=== PATIENT | female | born 1995 | race Caucasian/White ===

== ENCOUNTER 2020-11-05 19:12 | Emergency (ER) | payer OTHER ==
[~2020-11-05] VITALS: Ht 170.2 cm; Wt 120.2 kg
[~2020-11-05 19:12] MED LIST: Cyclobenzaprine5 MG PO; KETO10 PO
== END 2020-11-06 01:15 | disposition home or self-care (01) ==
LOC: ER 19:12
DX: M79.89 Other specified soft tissue disorders (principal); R20.0 Anesthesia of skin; R20.2 Paresthesia of skin; Z88.5 Allergy status to narcotic agent; Z88.0 Allergy status to penicillin
CPT/HCPCS: 29125; 73120; 99283-25

== ENCOUNTER 2021-04-19 02:23 | Emergency (ER) | payer BC ==
[~2021-04-19] VITALS: Ht 167.6 cm; Wt 124.7 kg
[2021-04-19] MEDS ORDERED: ESCI10 PO (03:57)
[2021-04-19] MEDS ORDERED: METF500 PO (03:57)
== END 2021-04-19 06:01 | disposition home or self-care (01) ==
LOC: ER 02:23
DX: N83.202 Unspecified ovarian cyst, left side (principal); N93.8 Other specified abnormal uterine and vaginal bleeding; E11.9 Type 2 diabetes mellitus without complications; Z88.5 Allergy status to narcotic agent; Z88.0 Allergy status to penicillin; Z79.84 Long term (current) use of oral hypoglycemic drugs; Z79.899 Other long term (current) drug therapy
CPT/HCPCS: 76830; 76856; 96374; 96375; 99284-25; J2405; J3010

== ENCOUNTER 2021-08-06 06:24 | Emergency (ER) | payer OTHER, BC ==
[~2021-08-06] VITALS: Ht 170.2 cm; Wt 127.0 kg
[~2021-08-06 06:24] MED LIST changes: +ESCI10 PO; +METF500 PO
[2021-08-06] MEDS ORDERED: BUPR75 PO (07:04)
[2021-08-06 07:14] LABS: Source, Urine Clean Catch
[2021-08-06 07:17] LABS: Bilirubin, Urine Neg (Neg); Blood, Urine Neg (Neg); Glucose Qualitative, Urine Neg (Neg); Ketones, Urine 1+ (Neg); Leukocyte Esterase, Urine Neg (Neg); Nitrite, Urine Neg (Neg); Protein, Urine 1+ (Neg); Specific Gravity, Urine 1.025 (1.003-1.022); Urobilinogen, Urine 2+ (Normal)
[2021-08-06 07:30] LABS: Appearance, Urine Hazy (Clear); Color, Urine Yellow (P-Yellow)
[2021-08-06 07:31] LABS: Bacteria Rare /hpf; Red Blood Cells, Urine Not Seen /hpf (0-2); Squamous Epithelial Cells Mod /hpf (Few); White Blood Cells, Urine Not Seen /hpf (0-5)
== END 2021-08-06 08:13 | disposition home or self-care (01) ==
LOC: ER 06:24
PROVIDERS: Emergency Medicine
DX: S39.91XA Unspecified injury of abdomen, initial encounter (principal); E11.9 Type 2 diabetes mellitus without complications; Z88.0 Allergy status to penicillin; Z88.5 Allergy status to narcotic agent; Z79.899 Other long term (current) drug therapy; Z79.84 Long term (current) use of oral hypoglycemic drugs; X58.XXXA Exposure to other specified factors, initial encounter
CPT/HCPCS: 76700; 81001; 99284-25

== ENCOUNTER 2021-08-09 19:22 | Emergency (ER) | payer BC ==
[~2021-08-09] VITALS: Ht 167.6 cm; Wt 130.0 kg
[~2021-08-09 19:22] MED LIST changes: +BUPR75 PO
== END 2021-08-10 01:07 | disposition home or self-care (01) ==
LOC: ER 19:22
DX: R07.89 Other chest pain (principal); K80.20 Calculus of gallbladder without cholecystitis without obstruction; R50.9 Fever, unspecified; Z88.5 Allergy status to narcotic agent; Z88.0 Allergy status to penicillin; E11.9 Type 2 diabetes mellitus without complications
CPT/HCPCS: 74177; 76705; 83690; A9270; J1885; J2405; J3010; J7030; Q9967

== ENCOUNTER → 2021-11-19 | Outpatient (CLI) | payer BC | END | disposition home or self-care (01) | LOC: LAB SHORT 17:08 → LAB 17:08 | DX: N91.2 Amenorrhea, unspecified (principal) | CPT/HCPCS: 84702 ==

== ENCOUNTER 2021-11-30 03:02 | Observation (INO) | payer BC ==
[~2021-11-30] VITALS: Ht 170.2 cm; Wt 124.7 kg
[2021-11-30 03:38] LABS: BASOPHILS ABSOLUTE AUTO 0.04 K/mm3 (0.00-0.23); BASOPHILS PERCENT AUTO 0 % (0-2); EOSINOPHILS ABSOLUTE AUTO 0.11 K/mm3 (0.00-0.68); EOSINOPHILS PERCENT AUTO 1 % (0-6); Hemoglobin 11.9 g/dL (11.5-16.0); IMMATURE GRAN ABSOLUTE AUTO 0.05 K/mm3 (0.00-0.10); IMMATURE GRAN PERCENT AUTO 1 % (0-1); LYMPHOCYTES ABSOLUTE AUTO 3.18 K/mm3 (0.84-5.20); LYMPHOCYTES PERCENT AUTO 31 % (21-46); MONOCYTES ABSOLUTE AUTO 0.74 K/mm3 (0.16-1.47); MONOCYTES PERCENT AUTO 7 % (4-13); Mean Corpuscular HGB 26.5 pg (26.0-34.0); Mean Corpuscular HGB Conc 32.2 g/dL (31.5-36.5); Mean Corpuscular Volume 82 fL (80-100); NEUTROPHILS ABSOLUTE AUTO 6.26 K/mm3 (1.96-9.15); NEUTROPHILS PERCENT AUTO 60 % (41-73); Platelet Count 376 K/mm3 (150-400); RDW Coefficient Variation 15.1 % (11.7-14.2); RDW Standard Deviation 45.4 fL (35.1-46.3); Red Blood Cell Count 4.49 M/mm3 (3.80-5.20); White Blood Cell Count 10.38 K/mm3 (4.00-11.30)
[2021-11-30 03:58] LABS: Alanine Aminotransfer (ALT/SGP 55 U/L (12-78); Albumin, Blood 3.5 g/dL (3.4-5.0); Albumin/Globulin Ratio 0.9 (0.8-1.8); Alk Phos 84 U/L (50-136); Anion Gap 6 mmol/L (6-16); Aspartate Aminotrans (AST/SGOT 27 U/L (12-37); Beta HCG, Quantitative, Serum <1 mIU/mL (0-3); Bilirubin, Direct 0.1 mg/dL (0.0-0.3); Bilirubin, Indirect 0.2 mg/dL (0.1-0.7); Bilirubin, Total 0.3 mg/dL (0.1-1.0); Blood Urea Nitrogen 14 mg/dL (8-24); CO2, Blood 26 mmol/L (21-32); Calcium, Blood 8.6 mg/dL (8.5-10.1); Chloride, Blood 106 mmol/L (98-108); Globulin, Blood 3.7 g/dL (2.2-4.0); Glomerular Filtration Rate 123 (60-); Glucose, Blood 111 mg/dL (70-99); Potassium, Blood 4.1 mmol/L (3.5-5.5); Sodium, Blood 138 mmol/L (136-145); Total Protein, Blood 7.2 g/dL (6.4-8.2)
[2021-11-30 04:24] LABS: Influenza A, PCR NEGATIVE (NEGATIVE); Influenza B, PCR NEGATIVE (NEGATIVE); Resp Syncytial Virus, PCR NEGATIVE (NEGATIVE); SARS-Cov-2 (COVID-19) PCR, MMC NEGATIVE (NEGATIVE)
[2021-11-30 06:25] LABS: Source, Urine Clean Catch
[2021-11-30 06:36] LABS: Appearance, Urine Clear (Clear); Bilirubin, Urine Neg (Neg); Blood, Urine 4+ (Neg); Color, Urine Yellow (P-Yellow); Glucose Qualitative, Urine Neg (Neg); Ketones, Urine Neg (Neg); Leukocyte Esterase, Urine Neg (Neg); Nitrite, Urine Neg (Neg); Protein, Urine 1+ (Neg); Specific Gravity, Urine 1.025 (1.003-1.022); Urobilinogen, Urine NORM (Normal)
[2021-11-30 06:56] LABS: Bacteria Few /hpf; Squamous Epithelial Cells Few /hpf (Few); White Blood Cells, Urine 0-2 /hpf (0-5)
--- NOTE | 2021-12-01 04:39 | NUR ---
SHIFT SUMMARY PT A&OX4, PLEASANT AND COOPERATIVE. TOLERATING SMALL AMOUNTS OF PO INTAKE, MEDICATED FOR NAUSEA ONCE. INDEPENDENT IN ROOM. REINFORCED UMBLICAL DRESSING STERI STRIPS WERE SATURATED, UPPER MOST LAP SITE HAD SOME DRIED BLOOD ON STERI STRIP, OTHER SITES WERE C/D/I. CALL LIGHT WITHIN REACH.
[2021-12-01] MEDS ORDERED: Percocet 10-321 EACH PO (10:35)
--- NOTE | 2021-12-01 10:49 | NUR ---
1047 DISCHARGED TO HOME. PT REPPORTS PAIN IS ADEQUATELY CONTROLLED WITH PO MEDS, SELF AMBULATING, ELADIA REGULAR DIET. VOIDING CLEAR YELLOW URINE
== END 2021-12-01 10:47 | disposition home or self-care (01) ==
LOC: ER 03:02 → SURS 03:03 → ER 09:43 → SURS 09:43 → ER 09:43 → SURS 09:43
PROVIDERS: Student in an Organized Health Care Education/Training Program; ADMIT Surgery
PROC: 0FT44ZZ Resection of Gallbladder, Percutaneous Endoscopic Approach (ICD-10-PCS; principal; 2021-11-30 14:30)
DX: K80.10 Calculus of gallbladder with chronic cholecystitis without obstruction (principal); D36.0 Benign neoplasm of lymph nodes; Z88.5 Allergy status to narcotic agent; Z88.0 Allergy status to penicillin; E11.9 Type 2 diabetes mellitus without complications; Z79.899 Other long term (current) drug therapy; Z20.822 Contact with and (suspected) exposure to COVID-19
CPT/HCPCS: 0241U; 74177; 76830; 76856; 80048; 80076; 81001; 83690; 84702; 85025; 94760; 96365-59; 96375; 96376; 99285-25; A9270; J0690; J0696; J1100; J1885; J2250; J2405; J2704; J2710; J2795; J3010; J7030; J7120; Q9967

== ENCOUNTER 2022-07-19 17:40 | Emergency (ER) | payer BC ==
[~2022-07-19] VITALS: Ht 165.1 cm; Wt 133.4 kg
[~2022-07-19 17:40] MED LIST changes: +Percocet 10-321 EACH PO
== END 2022-07-19 22:25 | disposition home or self-care (01) ==
LOC: ER 17:40
DX: N93.9 Abnormal uterine and vaginal bleeding, unspecified (principal); R10.2 Pelvic and perineal pain; E28.2 Polycystic ovarian syndrome; E11.9 Type 2 diabetes mellitus without complications; Z88.5 Allergy status to narcotic agent; Z88.0 Allergy status to penicillin; Z79.899 Other long term (current) drug therapy
CPT/HCPCS: 36415; 76830; 76856; 81025

== ENCOUNTER 2023-01-12 01:40 | Emergency (ER) | payer BC ==
[~2023-01-12] VITALS: Ht 167.6 cm; Wt 132.4 kg
[2023-01-12] MEDS ORDERED: ADDERALL 10 MG10 MG PO (02:37)
[2023-01-12 03:47] VITALS: BP 137/82
== END 2023-01-12 03:48 | disposition home or self-care (01) ==
LOC: ER 01:40
DX: R04.0 Epistaxis (principal); Z88.0 Allergy status to penicillin; Z88.5 Allergy status to narcotic agent
CPT/HCPCS: 99283; A9270

== ENCOUNTER 2023-04-03 17:07 | Emergency (ER) | payer BC ==
[~2023-04-03] VITALS: Ht 165.1 cm; Wt 120.2 kg
[~2023-04-03 17:07] MED LIST changes: +ADDERALL 10 MG10 MG PO
[2023-04-03 18:15] LABS: BASOPHILS ABSOLUTE AUTO 0.04 K/mm3 (0.00-0.23); BASOPHILS PERCENT AUTO 1 % (0-2); EOSINOPHILS ABSOLUTE AUTO 0.18 K/mm3 (0.00-0.68); EOSINOPHILS PERCENT AUTO 2 % (0-6); Hematocrit 39.6 % (33.0-51.0); Hemoglobin 12.9 g/dL (11.5-16.0); IMMATURE GRAN ABSOLUTE AUTO 0.02 K/mm3 (0.00-0.10); IMMATURE GRAN PERCENT AUTO 0 % (0-1); LYMPHOCYTES ABSOLUTE AUTO 1.46 K/mm3 (0.84-5.20); LYMPHOCYTES PERCENT AUTO 18 % (21-46); MONOCYTES ABSOLUTE AUTO 0.68 K/mm3 (0.16-1.47); MONOCYTES PERCENT AUTO 9 % (4-13); Mean Corpuscular HGB 26.5 pg (26.0-34.0); Mean Corpuscular HGB Conc 32.6 g/dL (31.5-36.5); Mean Corpuscular Volume 82 fL (80-100); Mean Platelet Volume 11.9 fL (9.1-12.4); NEUTROPHILS ABSOLUTE AUTO 5.55 K/mm3 (1.96-9.15); NEUTROPHILS PERCENT AUTO 70 % (41-73); Platelet Count 359 K/mm3 (150-400); RDW Coefficient Variation 14.8 % (11.7-14.2); RDW Standard Deviation 43.1 fL (35.1-46.3); Red Blood Cell Count 4.86 M/mm3 (3.80-5.20); White Blood Cell Count 7.93 K/mm3 (4.00-11.30)
[2023-04-03 18:31] LABS: Albumin, Blood 3.9 g/dL (3.4-5.0); Albumin/Globulin Ratio 1.1 (0.8-1.8); Bilirubin, Total 0.7 mg/dL (0.1-1.0); Bun/Creatinine Ratio 6.5 (12.0-20.0); Calcium, Blood 9.2 mg/dL (8.5-10.1); Creatinine, Blood 0.77 mg/dL (0.40-1.00); Globulin, Blood 3.7 g/dL (2.2-4.0); Potassium, Blood 3.6 mmol/L (3.5-5.5); Total Protein, Blood 7.6 g/dL (6.4-8.2)
[2023-04-03 18:38] LABS: Source, Urine Clean Catch
[2023-04-03 18:41] LABS: Blood, Urine 4+ (Neg); Glucose Qualitative, Urine Neg (Neg); Ketones, Urine 4+ (Neg); Leukocyte Esterase, Urine 1+ (Neg); Nitrite, Urine Neg (Neg); Protein, Urine 3+ (Neg); Urobilinogen, Urine 2+ (Normal)
[2023-04-03 18:43] LABS: Appearance, Urine Cloudy (Clear); Bilirubin, Urine 2+ (Neg); Color, Urine Yellow (P-Yellow)
[2023-04-03 18:45] LABS: Amorphous Mod (0-Heavy); Bacteria Few /hpf; Red Blood Cells, Urine 25-50 /hpf (0-2); Squamous Epithelial Cells Rare /hpf (Few); White Blood Cells, Urine 0-2 /hpf (0-5)
[2023-04-03 18:49] LABS: Other Crystals Few /hpf
[2023-04-03] MEDS ORDERED: CELEBREX200 MG PO (19:42)
[2023-04-03] MEDS ORDERED: PRILOSEC OTC20 MG PO (19:42)
[2023-04-03 20:15] VITALS: BP 167/103
[2023-04-03] MEDS ORDERED: Norco 5-325 Ta1 EACH PO (20:18)
== END 2023-04-03 20:30 | disposition home or self-care (01) ==
LOC: ER 17:07
PROVIDERS: Physician Assistant
DX: N20.0 Calculus of kidney (principal); E11.9 Type 2 diabetes mellitus without complications; Z98.84 Bariatric surgery status; Z88.5 Allergy status to narcotic agent; Z88.0 Allergy status to penicillin; Z79.899 Other long term (current) drug therapy
CPT/HCPCS: 74177; 80053; 81001; 84703; 85025; 87077; 87086; 87186; 96374; 96375; 99284-25; J1885; J2405; J3010; Q9967

== ENCOUNTER 2023-04-06 06:20 | Emergency (ER) | payer BC ==
[~2023-04-06] VITALS: Ht 167.6 cm; Wt 117.9 kg
[~2023-04-06 06:20] MED LIST changes: +CELEBREX200 MG PO; +Norco 5-325 Ta1 EACH PO; +PRILOSEC OTC20 MG PO
[2023-04-06 07:00] VITALS: BP 123/81
[2023-04-06 08:39] LABS: BASOPHILS ABSOLUTE AUTO 0.04 K/mm3 (0.00-0.23); BASOPHILS PERCENT AUTO 1 % (0-2); EOSINOPHILS ABSOLUTE AUTO 0.17 K/mm3 (0.00-0.68); EOSINOPHILS PERCENT AUTO 3 % (0-6); Hematocrit 38.5 % (33.0-51.0); Hemoglobin 12.3 g/dL (11.5-16.0); IMMATURE GRAN ABSOLUTE AUTO 0.02 K/mm3 (0.00-0.10); IMMATURE GRAN PERCENT AUTO 0 % (0-1); LYMPHOCYTES ABSOLUTE AUTO 1.63 K/mm3 (0.84-5.20); LYMPHOCYTES PERCENT AUTO 26 % (21-46); MONOCYTES ABSOLUTE AUTO 0.61 K/mm3 (0.16-1.47); MONOCYTES PERCENT AUTO 10 % (4-13); Mean Corpuscular HGB 26.3 pg (26.0-34.0); Mean Corpuscular HGB Conc 31.9 g/dL (31.5-36.5); Mean Corpuscular Volume 82 fL (80-100); Mean Platelet Volume 11.6 fL (9.1-12.4); NEUTROPHILS ABSOLUTE AUTO 3.78 K/mm3 (1.96-9.15); NEUTROPHILS PERCENT AUTO 61 % (41-73); Platelet Count 302 K/mm3 (150-400); RDW Standard Deviation 44.5 fL (35.1-46.3); Red Blood Cell Count 4.68 M/mm3 (3.80-5.20); White Blood Cell Count 6.25 K/mm3 (4.00-11.30)
[2023-04-06 08:58] LABS: Albumin, Blood 3.6 g/dL (3.4-5.0); Albumin/Globulin Ratio 0.9 (0.8-1.8); Bilirubin, Direct 0.2 mg/dL (0.0-0.3); Bilirubin, Indirect 0.5 mg/dL (0.1-0.7); Bilirubin, Total 0.7 mg/dL (0.1-1.0); Calcium, Blood 8.7 mg/dL (8.5-10.1); Creatinine, Blood 0.75 mg/dL (0.40-1.00); Globulin, Blood 3.9 g/dL (2.2-4.0); Magnesium, Blood 2.4 mg/dL (1.6-2.4); Potassium, Blood 3.4 mmol/L (3.5-5.5); Total Protein, Blood 7.5 g/dL (6.4-8.2)
[2023-04-06 10:54] LABS: Source, Urine Clean Catch
[2023-04-06 11:05] LABS: Appearance, Urine Hazy (Clear); Bilirubin, Urine Neg (Neg); Blood, Urine 3+ (Neg); Color, Urine Yellow (P-Yellow); Glucose Qualitative, Urine Neg (Neg); Ketones, Urine 4+ (Neg); Leukocyte Esterase, Urine 1+ (Neg); Nitrite, Urine Neg (Neg); Protein, Urine 2+ (Neg); Urobilinogen, Urine NORM (Normal); pH, Urine 6.5 (5.0-8.0)
[2023-04-06 11:40] LABS: Bacteria Rare /hpf; Calcium Oxalate Crystals Few /hpf; Squamous Epithelial Cells Few /hpf (Few); White Blood Cells, Urine 0-2 /hpf (0-5)
[2023-04-06] MEDS ORDERED: PROM12.5S PR (11:52)
[2023-04-06] MEDS ORDERED: METO10 PO (11:52)
[2023-04-06] MEDS ORDERED: ONDA4ODT MM (11:52)
== END 2023-04-06 12:00 | disposition home or self-care (01) ==
LOC: ER 06:20
PROVIDERS: Student in an Organized Health Care Education/Training Program
DX: R11.2 Nausea with vomiting, unspecified (principal); E86.0 Dehydration; E87.6 Hypokalemia; Z88.5 Allergy status to narcotic agent; Z88.0 Allergy status to penicillin; Z79.899 Other long term (current) drug therapy; E11.9 Type 2 diabetes mellitus without complications
CPT/HCPCS: 74177; 80048; 80076; 81001; 83690; 83735; 84703; 85025; 87086; 96361; 96374-59; 96375; 99284-25; A9270; J0780; J1790; J2765; J7030; Q9967

== ENCOUNTER 2023-04-12 10:21 | Inpatient (IN) | payer BC ==
[~2023-04-12] VITALS: Ht 165.1 cm; Wt 123.5 kg
[~2023-04-12 10:21] MED LIST changes: +METO10 PO; +ONDA4ODT MM; +PROM12.5S PR
[2023-04-12 11:45] LABS: BASOPHILS ABSOLUTE AUTO 0.03 K/mm3 (0.00-0.23); BASOPHILS PERCENT AUTO 0 % (0-2); EOSINOPHILS ABSOLUTE AUTO 0.03 K/mm3 (0.00-0.68); EOSINOPHILS PERCENT AUTO 0 % (0-6); Hematocrit 39.2 % (33.0-51.0); Hemoglobin 12.4 g/dL (11.5-16.0); IMMATURE GRAN ABSOLUTE AUTO 0.03 K/mm3 (0.00-0.10); IMMATURE GRAN PERCENT AUTO 0 % (0-1); LYMPHOCYTES ABSOLUTE AUTO 0.98 K/mm3 (0.84-5.20); LYMPHOCYTES PERCENT AUTO 9 % (21-46); MONOCYTES PERCENT AUTO 8 % (4-13); Mean Corpuscular HGB 26.4 pg (26.0-34.0); Mean Corpuscular HGB Conc 31.6 g/dL (31.5-36.5); Mean Corpuscular Volume 84 fL (80-100); Mean Platelet Volume 12.3 fL (9.1-12.4); NEUTROPHILS ABSOLUTE AUTO 8.73 K/mm3 (1.96-9.15); NEUTROPHILS PERCENT AUTO 82 % (41-73); Platelet Count 265 K/mm3 (150-400); RDW Coefficient Variation 15.1 % (11.7-14.2); RDW Standard Deviation 45.1 fL (35.1-46.3); Red Blood Cell Count 4.69 M/mm3 (3.80-5.20)
[2023-04-12 12:10] LABS: Albumin, Blood 3.5 g/dL (3.4-5.0); Albumin/Globulin Ratio 0.9 (0.8-1.8); Bilirubin, Total 0.6 mg/dL (0.1-1.0); Bun/Creatinine Ratio 5.6 (12.0-20.0); Calcium, Blood 8.5 mg/dL (8.5-10.1); Creatinine, Blood 2.51 mg/dL (0.40-1.00); Globulin, Blood 3.9 g/dL (2.2-4.0); Potassium, Blood 3.7 mmol/L (3.5-5.5); Total Protein, Blood 7.4 g/dL (6.4-8.2)
[2023-04-12 14:08] LABS: Bun/Creatinine Ratio 5.9 (12.0-20.0); Calcium, Blood 7.8 mg/dL (8.5-10.1); Creatinine, Blood 2.37 mg/dL (0.40-1.00); Potassium, Blood 3.2 mmol/L (3.5-5.5)
[2023-04-12 17:26] VITALS: BP 125/74
--- NOTE | 2023-04-12 18:37 | NUR ---
SHIFT SUMMARY: ETHEL IS A&OX4. VSS, NO ACUTE EVENTS SINCE ADMISSION TO MEDICAL FLOOR. SHE STATES SHE IS UNABLE TO TOLERATE ANY PO INTAKE AND FEELS NAUSEATED. SHE IS INDEPENDENT IN THE ROOM, HAS NOT PRODUCED URINE SINCE COMING TO THE HOSPITAL. SHE USES THE CALL LIGHT APPROPRIATELY AND IS ABLE TO TURN AND REPOSITION HERSELF INDEPENDENTLY. IV TO RIGHT UPPER SHOULDER PATENT. SHE IS LYING IN BED WITH THE CALL LIGHT IN REACH. WILL REPORT TO ONCOMING SHIFT.
[2023-04-12 20:07] VITALS: BP 130/94
--- NOTE | 2023-04-12 21:37 | NUR ---
CALLED HOSPITALIST INFORMED HIM OF PATIENT'S NAUSEA/VOMITING. RECEIVED NEW MEDICATION IN EMAR. EKG ORDERED DUE TO NUMEROUS ANTI-EMETIC ADMINISTRATION
--- NOTE | 2023-04-13 02:41 | NUR ---
CALLED HOSPITALIST INFORMED HIM OF NO URINE OUTPUT FOR > 12 HOURS. 5 LITERS NS HAVE BEEN INFUSED SINCE ADMIT. INFORMED HIM OF GFR. NEW ORDERS RECEIVED FOR CT SCAN. PT HAS PAINFUL ABDOMEN. N/V ARE BEING MEDICATED FREQUENTLY. SHE CANNOT TOLERATE ANYTHING PO. LUNGS CLEAR AT THE TIME, NO BLE EDEMA NOTED AT THIS TIME
--- NOTE | 2023-04-13 04:36 | NUR ---
SHIFT SUMMARY ADMITTED FOR RT FLANK/RLQ PAIN/JESSICA. FULL CODE. IV ANTIB RX ARE SCHEDULED. IV FLUIDS HAVE BEEN ADMINISTERED. ANTI EMETIC MEDICATIONS GIVEN FREQUENTLY THROUGHOUT SHIFT. EKG DONE DUE TO AMOUNT OF ANTI EMETICS GIVEN, EKG IN CHART. MONITORING LABS. RECENT HX OF GASTRIC SLEEVE PROCEDURE AND KIDNEY STONE. SHE HAS BEEN VOMITING FOR A WEEK AND A HALF NOW ACCORDING TO REPORT. WE ARE MONITORING FOR OUTPUT. NO URINE OUTPUT THIS SHIFT. I SEE NO URINE OUTPUT SINCE ADMIT REPORTED. SEE PREVIOUS NOTE. URGENT ABDOMINAL CT ORDERED. ON ROOM AIR. STANDBY ASSIST - BRP. SHE IS A&0 X4.
[2023-04-13 05:08] VITALS: BP 141/85
[2023-04-13 06:04] LABS: BASOPHILS ABSOLUTE AUTO 0.03 K/mm3 (0.00-0.23); BASOPHILS PERCENT AUTO 0 % (0-2); EOSINOPHILS ABSOLUTE AUTO 0.03 K/mm3 (0.00-0.68); EOSINOPHILS PERCENT AUTO 0 % (0-6); Hematocrit 34.8 % (33.0-51.0); Hemoglobin 10.8 g/dL (11.5-16.0); IMMATURE GRAN ABSOLUTE AUTO 0.03 K/mm3 (0.00-0.10); IMMATURE GRAN PERCENT AUTO 0 % (0-1); LYMPHOCYTES ABSOLUTE AUTO 0.84 K/mm3 (0.84-5.20); LYMPHOCYTES PERCENT AUTO 9 % (21-46); MONOCYTES ABSOLUTE AUTO 0.91 K/mm3 (0.16-1.47); MONOCYTES PERCENT AUTO 10 % (4-13); Mean Corpuscular HGB 26.4 pg (26.0-34.0); Mean Corpuscular Volume 85 fL (80-100); Mean Platelet Volume 12.5 fL (9.1-12.4); NEUTROPHILS ABSOLUTE AUTO 7.26 K/mm3 (1.96-9.15); NEUTROPHILS PERCENT AUTO 80 % (41-73); Platelet Count 193 K/mm3 (150-400); RDW Coefficient Variation 15.4 % (11.7-14.2); RDW Standard Deviation 47.4 fL (35.1-46.3); Red Blood Cell Count 4.09 M/mm3 (3.80-5.20)
[2023-04-13 06:24] LABS: Bun/Creatinine Ratio 4.5 (12.0-20.0); Calcium, Blood 7.7 mg/dL (8.5-10.1); Creatinine, Blood 4.46 mg/dL (0.40-1.00); Magnesium, Blood 1.9 mg/dL (1.6-2.4); Potassium, Blood 3.9 mmol/L (3.5-5.5)
[2023-04-13 07:14] VITALS: BP 126/86
[2023-04-13 17:16] VITALS: BP 143/84
--- NOTE | 2023-04-13 18:22 | NUR ---
SUMMARY- PT A/O X4, INDEPENDANT TO BATHROOM. NO VOID THIS ENTIRE SHIFT. BLADDER SCAN AT 1400= 4ML, CHECKED MULT TIMES. PT HAS NO URGE TO VOID. ESCOBAR CATH ORDERED PER DR MOORE, RECOMMENDED BY UROLOGY IN CASE URINE PRESENT IN BLADDER BUT UNDETECTABLE OF IF URINE STARTS UP, BUT PT DECLINES DESPITE DR MOORE URGING. PT IS HAVING PAIN IN BILAT FLANK CONTROLLED BY IV FENTANYL. NAUSEA CONTROLLED WITH ALTERNATING ZOFRAN AND REGLAN, RESUSES PHENERGAN [place]. NOT ABLE TO TOLERATE ANY ORAL INTAKE, IVF ON HOLD, HAD BEEN GIVEN 5L PREVIOUS SHIFTS AND NO U.O. ENTIRE ATAY. PT'S LUNGS ARE CLEAR, +1 EDEMA BLE. PT IS ON WAITING LIST FOR АННА RINALDI TO BE SEEN BY UROLOGY. DR BHAKTA WILL BE HERE TOMORROW FOR POSSIBLE NEPH TUBE PLACEMENT. FAMILY IS VERY CONCERNED ABOUT WAITING FOR INTERVENTION TO TAKE PLACE, SPOKE WITH DR MOORE IN DETAIL ABOUT THE PLAN AND ALTERNATIVES. WILL REPORT ALL TO ROB DORAN
[2023-04-13 20:51] VITALS: BP 148/89
[2023-04-14 00:19] LABS: Calcium, Blood 8.2 mg/dL (8.5-10.1); Creatinine, Blood 6.5 mg/dL (0.40-1.00); Potassium, Blood 3.8 mmol/L (3.5-5.5)
[2023-04-14 02:15] VITALS: BP 148/89
[2023-04-14 02:38] VITALS: BP 148/89
[2023-04-14 03:31] LABS: Source, Urine Foley catheter
[2023-04-14 03:33] LABS: Blood, Urine 5+ (Neg); Glucose Qualitative, Urine Neg (Neg); Ketones, Urine 2+ (Neg); Leukocyte Esterase, Urine 3+ (Neg); Nitrite, Urine Neg (Neg); Protein, Urine 3+ (Neg); Urobilinogen, Urine 1+ (Normal)
[2023-04-14 03:39] LABS: Appearance, Urine Cloudy (Clear); Bilirubin, Urine 2+ (Neg); Color, Urine Amber (P-Yellow)
[2023-04-14 03:40] LABS: Amorphous Light (0-Heavy); Bacteria Mod /hpf; Mucus Light (0-Heavy); Squamous Epithelial Cells Rare /hpf (Few); Transitional Epithelial Cells Few /hpf (0-Rare); White Blood Cells, Urine TNTC /hpf (0-5)
--- NOTE | 2023-04-14 05:07 | NUR ---
PT HAD REFUSED ESCOBAR CATH AT START OF SHIFT BUT AFTER DR. CHAN CAME BY AND EXPLAINED NEED FOR AND THAT THE UROLOGIST ACCEPTING HER WANTED ONE PLACED PRIOR TO TRANSFER SHE WAS AGREEABLE. ESCOBAR CATH PLACED WITH NO OUTPUT AT TIME OF INSERTION. PT HAD ABOUT 50 ML OUT ALEXIS IN COLOR APPROXIMATELY 30 MINS LATER, SAMPLE SENT TO LAB. REPORT WAS CALLED TO NURSE DEJESUS AROUND 1 AM. EMS PICKED UP PT VIA STRETCHER AND TOOK ALL PATIENT BELONGINGS.
== END 2023-04-14 03:38 | disposition short-term general hospital (02) | DRG 683 ==
LOC: ER 10:21 → MEDS 10:22 → ER 10:22 → MEDS 17:20
PROVIDERS: Emergency Medicine; Internal Medicine; Student in an Organized Health Care Education/Training Program; ADMIT Internal Medicine
DX: N17.9 Acute kidney failure, unspecified (principal); N39.0 Urinary tract infection, site not specified; E86.0 Dehydration; E87.6 Hypokalemia; R00.1 Bradycardia, unspecified; N13.2 Hydronephrosis with renal and ureteral calculous obstruction; E66.9 Obesity, unspecified; E11.9 Type 2 diabetes mellitus without complications; B96.20 Unspecified Escherichia coli [E. coli] as the cause of diseases classified elsewhere; Z90.89 Acquired absence of other organs; Z90.49 Acquired absence of other specified parts of digestive tract; Z98.84 Bariatric surgery status; Z88.0 Allergy status to penicillin; Z88.5 Allergy status to narcotic agent; Z88.8 Allergy status to other drugs, medicaments and biological substances
CPT/HCPCS: 36415; 51798; 74176; 80048; 80053; 81001; 82947; 83690; 83735; 85025; 87086; 93005; 93010; 96361; 96365; 96366; 96367; 96372-59; 96375; 96376; 99285-25; C1751; G0378; J0696; J0744; J0780; J1885; J1940; J2405; J2765; J3010; J3480; J7030; J7050

== ENCOUNTER → 2023-05-16 | Outpatient (CLI) | payer BC ==
[2023-05-16 14:14] LABS: BASOPHILS ABSOLUTE AUTO 0.05 K/mm3 (0.00-0.23); BASOPHILS PERCENT AUTO 1 % (0-2); EOSINOPHILS PERCENT AUTO 1 % (0-6); Hemoglobin 13.3 g/dL (11.5-16.0); IMMATURE GRAN ABSOLUTE AUTO 0.03 K/mm3 (0.00-0.10); IMMATURE GRAN PERCENT AUTO 0 % (0-1); LYMPHOCYTES ABSOLUTE AUTO 1.76 K/mm3 (0.84-5.20); LYMPHOCYTES PERCENT AUTO 23 % (21-46); MONOCYTES ABSOLUTE AUTO 0.68 K/mm3 (0.16-1.47); MONOCYTES PERCENT AUTO 9 % (4-13); Mean Corpuscular HGB 26.3 pg (26.0-34.0); Mean Corpuscular HGB Conc 32.4 g/dL (31.5-36.5); Mean Corpuscular Volume 81 fL (80-100); Mean Platelet Volume 11.5 fL (9.1-12.4); NEUTROPHILS ABSOLUTE AUTO 4.96 K/mm3 (1.96-9.15); NEUTROPHILS PERCENT AUTO 65 % (41-73); Platelet Count 288 K/mm3 (150-400); RDW Coefficient Variation 17.2 % (11.7-14.2); RDW Standard Deviation 47.4 fL (35.1-46.3); Red Blood Cell Count 5.06 M/mm3 (3.80-5.20); White Blood Cell Count 7.58 K/mm3 (4.00-11.30)
[2023-05-16 14:32] LABS: Albumin, Blood 3.3 g/dL (3.4-5.0); Albumin/Globulin Ratio 0.7 (0.8-1.8); Bilirubin, Total 0.9 mg/dL (0.1-1.0); Bun/Creatinine Ratio 9.9 (12.0-20.0); Calcium, Blood 9.4 mg/dL (8.5-10.1); Creatinine, Blood 0.91 mg/dL (0.40-1.00); Globulin, Blood 4.7 g/dL (2.2-4.0); Potassium, Blood 3.3 mmol/L (3.5-5.5)
[2023-05-16 16:19] LABS: Free Thyroxine 1.46 ng/dL (0.70-1.60); Thyroid Stimulating Hormone 2.713 uIU/mL (0.360-4.800)
[2023-05-16 18:29] LABS: Triiodothyronine, Free 2.22 pg/mL (2.18-3.98)
== END ==
LOC: LAB 14:10 → LAB SHORT 14:10
PROVIDERS: Physician Assistant Surgical
DX: R11.2 Nausea with vomiting, unspecified (principal); R42 Dizziness and giddiness
CPT/HCPCS: 80053; 82607; 82746; 84439; 84443; 84481; 85025; 85379

== ENCOUNTER 2023-06-07 05:06 | Day surgery (SDC) | payer BC ==
[2023-06-07] MEDS ORDERED: Thiamine HCl 500 MG in NS 100 ML IV SCH (06:00)
[2023-06-07 10:08] VITALS: BP 136/86
[2023-06-07] MEDS ORDERED: AMPDEX10CR PO (10:13)
[2023-06-07] MEDS ORDERED: PANT40 PO (10:13)
== END 2023-06-07 10:40 | disposition home or self-care (01) ==
LOC: ATC 05:06
DX: E51.9 Thiamine deficiency, unspecified (principal); N13.30 Unspecified hydronephrosis; Z88.5 Allergy status to narcotic agent; Z88.0 Allergy status to penicillin; R31.0 Gross hematuria
CPT/HCPCS: 96365; J3411

== ENCOUNTER 2023-06-12 01:18 | Day surgery (SDC) | payer BC ==
[~2023-06-12 01:18] MED LIST changes: +AMPDEX10CR PO; +PANT40 PO
[2023-06-12] MEDS ORDERED: Thiamine HCl 250 MG in NS 100 ML IV SCH (06:00)
[2023-06-12 09:14] VITALS: BP 138/92
== END 2023-06-12 09:40 | disposition home or self-care (01) ==
LOC: ATC 01:18
DX: E51.9 Thiamine deficiency, unspecified (principal); N13.30 Unspecified hydronephrosis; E03.8 Other specified hypothyroidism; Z88.5 Allergy status to narcotic agent; Z88.0 Allergy status to penicillin
CPT/HCPCS: J3411

== ENCOUNTER 2023-06-13 02:53 | Day surgery (SDC) | payer BC ==
[~2023-06-13 02:53] MED LIST changes: +Thiamine HCl 250 MG in NS 100 ML IV SCH
[2023-06-13] MEDS ORDERED: Thiamine HCl 500 MG in NS 100 ML IV SCH (07:00)
[2023-06-13 10:09] VITALS: BP 133/89
== END 2023-06-13 10:37 | disposition home or self-care (01) ==
LOC: ATC 02:53
DX: E51.9 Thiamine deficiency, unspecified (principal); E03.8 Other specified hypothyroidism; Z88.5 Allergy status to narcotic agent; Z88.0 Allergy status to penicillin
CPT/HCPCS: 96365; J3411

== ENCOUNTER → 2024-02-04 | Outpatient (CLI) | payer BC ==
[~2024-02-04] MED LIST changes: -Thiamine HCl 250 MG in NS 100 ML IV SCH
[2024-02-04 16:32] LABS: BASOPHILS ABSOLUTE AUTO 0.01 K/mm3 (0.00-0.23); BASOPHILS PERCENT AUTO 0 % (0-2); EOSINOPHILS ABSOLUTE AUTO 0.01 K/mm3 (0.00-0.68); EOSINOPHILS PERCENT AUTO 0 % (0-6); Hematocrit 34.7 % (33.0-51.0); Hemoglobin 10.6 g/dL (11.5-16.0); IMMATURE GRAN ABSOLUTE AUTO 0.03 K/mm3 (0.00-0.10); IMMATURE GRAN PERCENT AUTO 0 % (0-1); LYMPHOCYTES ABSOLUTE AUTO 0.61 K/mm3 (0.84-5.20); LYMPHOCYTES PERCENT AUTO 8 % (21-46); MONOCYTES ABSOLUTE AUTO 0.45 K/mm3 (0.16-1.47); MONOCYTES PERCENT AUTO 6 % (4-13); Mean Corpuscular HGB 23.7 pg (26.0-34.0); Mean Corpuscular HGB Conc 30.5 g/dL (31.5-36.5); Mean Corpuscular Volume 78 fL (80-100); Mean Platelet Volume 10.4 fL (9.1-12.4); NEUTROPHILS ABSOLUTE AUTO 6.51 K/mm3 (1.96-9.15); NEUTROPHILS PERCENT AUTO 86 % (41-73); Platelet Count 321 K/mm3 (150-400); RDW Coefficient Variation 16.8 % (11.7-14.2); RDW Standard Deviation 46.7 fL (35.1-46.3); Red Blood Cell Count 4.47 M/mm3 (3.80-5.20); White Blood Cell Count 7.62 K/mm3 (4.00-11.30)
[2024-02-04 16:41] LABS: Albumin, Blood 3.2 g/dL (3.4-5.0); Albumin/Globulin Ratio 0.9 (0.8-1.8); Bun/Creatinine Ratio 11.3 (12.0-20.0); Calcium, Blood 8.4 mg/dL (8.5-10.1); Creatinine, Blood 0.71 mg/dL (0.40-1.00); Globulin, Blood 3.5 g/dL (2.2-4.0); Potassium, Blood 3.7 mmol/L (3.5-5.5); Total Protein, Blood 6.7 g/dL (6.4-8.2)
== END ==
LOC: LAB 16:28 → LAB SHORT 16:28
PROVIDERS: Physician Assistant
DX: E86.0 Dehydration (principal)
CPT/HCPCS: 80053; 83690; 85025

== ENCOUNTER 2024-07-02 20:32 | Inpatient (IN) | payer BC ==
[~2024-07-02] VITALS: Ht 165.1 cm; Wt 91.0 kg
[2024-07-02] MEDS ORDERED: Ondansetron HCl 2 MG / ML 2ML Vial IV ONE (20:55)
[2024-07-02 20:59] LABS: BASOPHILS ABSOLUTE AUTO 0.02 K/mm3 (0.00-0.23); BASOPHILS PERCENT AUTO 0 % (0-2); EOSINOPHILS ABSOLUTE AUTO 0.05 K/mm3 (0.00-0.68); EOSINOPHILS PERCENT AUTO 1 % (0-6); Hematocrit 29.8 % (33.0-51.0); Hemoglobin 8.9 g/dL (11.5-16.0); IMMATURE GRAN ABSOLUTE AUTO 0.02 K/mm3 (0.00-0.10); IMMATURE GRAN PERCENT AUTO 0 % (0-1); LYMPHOCYTES ABSOLUTE AUTO 2.11 K/mm3 (0.84-5.20); LYMPHOCYTES PERCENT AUTO 28 % (21-46); MONOCYTES PERCENT AUTO 8 % (4-13); Mean Corpuscular HGB 22.4 pg (26.0-34.0); Mean Corpuscular HGB Conc 29.9 g/dL (31.5-36.5); Mean Corpuscular Volume 75 fL (80-100); Mean Platelet Volume 9.5 fL (9.1-12.4); NEUTROPHILS ABSOLUTE AUTO 4.84 K/mm3 (1.96-9.15); NEUTROPHILS PERCENT AUTO 63 % (41-73); Platelet Count 419 K/mm3 (150-400); RDW Coefficient Variation 17.6 % (11.7-14.2); RDW Standard Deviation 48.2 fL (35.1-46.3); Red Blood Cell Count 3.97 M/mm3 (3.80-5.20); White Blood Cell Count 7.64 K/mm3 (4.00-11.30)
[2024-07-02 21:25] LABS: Albumin, Blood 3.3 g/dL (3.4-5.0); Bilirubin, Total 0.6 mg/dL (0.1-1.0); Bun/Creatinine Ratio 13.6 (12.0-20.0); Calcium, Blood 8.5 mg/dL (8.5-10.1); Creatinine, Blood 0.66 mg/dL (0.40-1.00); Globulin, Blood 3.2 g/dL (2.2-4.0); Potassium, Blood 3.6 mmol/L (3.5-5.5); Total Protein, Blood 6.5 g/dL (6.4-8.2)
[2024-07-02] MEDS ORDERED: FentaNYL Citrate 50 MCG/ML 2 ML Injection IV ONE (23:15)
[2024-07-02] MEDS ORDERED: NS 1,000 ML IV SCH (23:15)
[2024-07-02 23:52] LABS: Hematocrit 28.2 % (33.0-51.0); Hemoglobin 8.6 g/dL (11.5-16.0)
[2024-07-03] VITALS (19 sets, daily range): BP systolic 99–123; BP diastolic 57–80
[2024-07-03] MEDS ORDERED: FentaNYL Citrate 50 MCG/ML 2 ML Injection IV ONE ×2 (00:25→06:10)
[2024-07-03] MEDS ORDERED: Ondansetron HCl 2 MG / ML 2ML Vial IV ONE (00:25)
[2024-07-03] MEDS ORDERED: FentaNYL Citrate 50 MCG/ML 2 ML Injection IV PRN (00:30)
[2024-07-03] MEDS ORDERED: NS 1,000 ML IV SCH (00:30)
[2024-07-03] MEDS ORDERED: Ondansetron HCl 2 MG / ML 2ML Vial IV PRN (00:30)
[2024-07-03] MEDS ORDERED: FLU VACC TS2024-25(6MOS UP)/PF 45 MCG/0.5 ML SYRINGE IM ONE (00:30)
[2024-07-03] MEDS ORDERED: Rho(D) Immune Globulin 300 MCG / SYR IV ONE (01:15)
[2024-07-03 01:21] LABS: International Normalized Ratio 1.07; Prothrombin Time Results 11.4 Sec (9.7-11.5)
[2024-07-03 01:35] LABS: BASOPHILS ABSOLUTE AUTO 0.04 K/mm3 (0.00-0.23); BASOPHILS PERCENT AUTO 0 % (0-2); EOSINOPHILS ABSOLUTE AUTO 0.06 K/mm3 (0.00-0.68); EOSINOPHILS PERCENT AUTO 1 % (0-6); Hemoglobin 8.2 g/dL (11.5-16.0); IMMATURE GRAN ABSOLUTE AUTO 0.04 K/mm3 (0.00-0.10); IMMATURE GRAN PERCENT AUTO 0 % (0-1); LYMPHOCYTES PERCENT AUTO 24 % (21-46); MONOCYTES ABSOLUTE AUTO 0.63 K/mm3 (0.16-1.47); MONOCYTES PERCENT AUTO 6 % (4-13); Mean Corpuscular HGB Conc 30.4 g/dL (31.5-36.5); Mean Corpuscular Volume 76 fL (80-100); Mean Platelet Volume 9.5 fL (9.1-12.4); NEUTROPHILS ABSOLUTE AUTO 7.42 K/mm3 (1.96-9.15); NEUTROPHILS PERCENT AUTO 69 % (41-73); Platelet Count 337 K/mm3 (150-400); RDW Coefficient Variation 17.4 % (11.7-14.2); RDW Standard Deviation 47.9 fL (35.1-46.3); Red Blood Cell Count 3.56 M/mm3 (3.80-5.20); White Blood Cell Count 10.79 K/mm3 (4.00-11.30)
[2024-07-03 01:55] LABS: Albumin, Blood 2.9 g/dL (3.4-5.0); Bilirubin, Total 0.8 mg/dL (0.1-1.0); Bun/Creatinine Ratio 13.5 (12.0-20.0); Calcium, Blood 8.1 mg/dL (8.5-10.1); Creatinine, Blood 0.59 mg/dL (0.40-1.00); Potassium, Blood 3.4 mmol/L (3.5-5.5); Total Protein, Blood 5.9 g/dL (6.4-8.2)
[2024-07-03] MEDS ORDERED: Metoclopramide HCl 5MG / ML 2ML Vial IV PRN (03:15)
[2024-07-03] MEDS ORDERED: Potassium Chloride 40 MEQ in NS 250 ML IV ONE (07:00)
[2024-07-03] MEDS ORDERED: NS 250 ML IV PRN (07:25)
[2024-07-03] MEDS ORDERED: Ketorolac Tromethamine 15mg Vial IV PRN (09:25)
[2024-07-03] MEDS ORDERED: Lactated Ringer's 1,000 ML IV SCH (12:50)
[2024-07-03] MEDS ORDERED: Dexamethasone Sod Phos 10 MG/ML 1ML VIAL ONE (13:35)
[2024-07-03] MEDS ORDERED: Rocuronium Bromide 10 MG/ML 5ML Injection IV ONE (13:35)
[2024-07-03] MEDS ORDERED: FentaNYL Citrate 50 MCG/ML 5 ML Injection ONE (13:35)
[2024-07-03] MEDS ORDERED: propofoL 20 ML IV ONE (13:35)
[2024-07-03] MEDS ORDERED: Ketorolac Tromethamine 30mg Vial ONE (13:35)
[2024-07-03] MEDS ORDERED: Ondansetron HCl 2 MG / ML 2ML Vial ONE (13:35)
--- NOTE | 2024-07-03 13:37 | NUR ---
PATIENT REMOVED A NECKLACE AND GAVE TO HER SPOUSE.
[2024-07-03] MEDS ORDERED: Bupivacaine 0.5% W/EPI 1:200000 SDV 30 ML Vial ONE (13:39)
[2024-07-03] MEDS ORDERED: Clindamycin 600mg in D5W 50 ML IV SCH (14:02)
[2024-07-03] MEDS ORDERED: Gentamicin Sulfate 100 MG in NS 100 ML IV SCH (14:03)
[2024-07-03] MEDS ORDERED: Sugammadex Sodium 200 MG/2ML SDV (100 MG/ML) ONE (15:17)
[2024-07-03] MEDS ORDERED: OxyCODONE 5 mg/Acetamin 325 mg TABLET PO PRN (15:25)
[2024-07-03] MEDS ORDERED: FentaNYL Citrate 50 MCG/ML 2 ML Injection ONE (15:41)
--- NOTE | 2024-07-03 16:39 | NUR ---
ARRIVAL NOTE/SUMMARY PT INTO ROOM 217 FROM PACU. AWAKE, RESPONSIVE, ORIENTED. EMOTIONAL AND TEARFUL. PT MEDICATED FOR PAIN SHORTLY AFTER ARRIVAL. VSS. TOLERATING CLEARS. SCANT BLEEDING PRESENT ON SHAHRAM PAD. LAP SITES X2 C/D/I. CALL LIGHT IN REACH.
[2024-07-03 16:54] LABS: Hemoglobin 8.4 g/dL (11.5-16.0)
[2024-07-03 17:27] LABS: Bun/Creatinine Ratio 10.5 (12.0-20.0); Calcium, Blood 7.8 mg/dL (8.5-10.1); Creatinine, Blood 0.67 mg/dL (0.40-1.00); Potassium, Blood 4.1 mmol/L (3.5-5.5)
--- NOTE | 2024-07-03 18:11 | NUR ---
NO ACUTE CHANGES SINCE PT'S ARRIVAL TO ROOM. PT STATES PAIN IMPROVED AFTER PAIN MEDICATION PER EMAR. VSS. PT MORE ALERT AND EATING SNACKS, VISITOR AT BEDSIDE. CALL LIGHT IN REACH.
[2024-07-04 04:47] VITALS: BP 108/63
--- NOTE | 2024-07-04 04:51 | NUR ---
SHIFT SUMMARY POD 1 S/P SALPINGECTOMY R/T ECTOPIC . PT A/OX4 WITH VSS. IS PLEASANT AND COOPERATIVE WITH CARE. IND IN ROOM AND HALLWAYS. ABD INCISIONS INTACT, NO DRAINAGE OR ABNORMALITIES NOTED. NO CHANGE TO VAGINAL BLEEDING. PAIN MANAGED PER EMAR, HEAT AND AMBULATION. GOOD PO INTAKE. IV PATENT AND SL. PLAN FOR POSSIBLE DC HOME TODAY. WILL GIVE REPORT TO ONCOMING ESPINOZA
[2024-07-04 05:20] LABS: BASOPHILS ABSOLUTE AUTO 0.01 K/mm3 (0.00-0.23); BASOPHILS PERCENT AUTO 0 % (0-2); EOSINOPHILS PERCENT AUTO 0 % (0-6); Hematocrit 25.8 % (33.0-51.0); Hemoglobin 7.6 g/dL (11.5-16.0); IMMATURE GRAN ABSOLUTE AUTO 0.06 K/mm3 (0.00-0.10); IMMATURE GRAN PERCENT AUTO 0 % (0-1); LYMPHOCYTES ABSOLUTE AUTO 0.87 K/mm3 (0.84-5.20); LYMPHOCYTES PERCENT AUTO 6 % (21-46); MONOCYTES ABSOLUTE AUTO 0.73 K/mm3 (0.16-1.47); MONOCYTES PERCENT AUTO 5 % (4-13); Mean Corpuscular HGB 22.5 pg (26.0-34.0); Mean Corpuscular HGB Conc 29.5 g/dL (31.5-36.5); Mean Corpuscular Volume 76 fL (80-100); Mean Platelet Volume 10.3 fL (9.1-12.4); NEUTROPHILS ABSOLUTE AUTO 11.94 K/mm3 (1.96-9.15); NEUTROPHILS PERCENT AUTO 88 % (41-73); Platelet Count 348 K/mm3 (150-400); RDW Coefficient Variation 17.6 % (11.7-14.2); RDW Standard Deviation 48.3 fL (35.1-46.3); Red Blood Cell Count 3.38 M/mm3 (3.80-5.20); White Blood Cell Count 13.61 K/mm3 (4.00-11.30)
[2024-07-04 05:44] LABS: Albumin/Globulin Ratio 1.1 (0.8-1.8); Bilirubin, Total 0.4 mg/dL (0.1-1.0); Bun/Creatinine Ratio 10.9 (12.0-20.0); Calcium, Blood 8.1 mg/dL (8.5-10.1); Creatinine, Blood 0.64 mg/dL (0.40-1.00); Globulin, Blood 2.8 g/dL (2.2-4.0); Potassium, Blood 4.1 mmol/L (3.5-5.5); Total Protein, Blood 5.8 g/dL (6.4-8.2)
[2024-07-04 08:04] VITALS: BP 103/51
[2024-07-04] MEDS ORDERED: ONDA4 PO (09:44)
[2024-07-04] MEDS ORDERED: Percocet 5-3251 EACH PO (09:45)
--- NOTE | 2024-07-04 11:29 | NUR ---
DISCHARGE NOTE THIS RN ASSUMED CARE AT APPROX 0715. PATIENT ALERT AND ORIENTED X4. COMMUNICATES NEEDS EFFECTIVELY. INDEPENDENT IN ROOM. POD 1 LAP ECTOPIC REMOVAL AND R SALPINGECTOMY. VSS. SBP 100s. MAP >65. DENIES CHEST PAIN, PRESSURE. TELEMETRY SHOWING SINUS ARRHYTHMIA 60s-70s PRIOR TO REMOVAL. ON ROOM AIR, SATs >90%. RR EVEN, UNLABORED. X2 LAP SITES C/D/I. MANAGING PAIN WITH PRESCRIBED THERAPY. VOIDING. TOLERATING PO INTAKE. WONDERLY ROUNDED THIS MORNING - CLEAR TO DC HOME. HOSPITALIST CONTACTED - DC HOME ORDERED. DC EDUCATION PROVIDED BY ASSOCIATE PROFESSOR OF LITERATURE. IV REMOVED. PATIENT DC OFF UNIT AT APPROX 1130. PERSONAL BELONGINGS WITH PATIENT.
== END 2024-07-04 11:28 | disposition home or self-care (01) | DRG 817 ==
LOC: ER 20:32 → MEDS 20:33 → SURS 20:33 → MEDS 20:33 → SURS 07-03 16:15
PROVIDERS: Emergency Medicine; Obstetrics & Gynecology; Student in an Organized Health Care Education/Training Program; ADMIT Internal Medicine
PROC: 0UB50ZZ Excision of Right Fallopian Tube, Open Approach (ICD-10-PCS; 2024-07-03)
PROC: 10T20ZZ Resection of Products of Conception, Ectopic, Open Approach (ICD-10-PCS; principal; 2024-07-03 14:00)
DX: O00.101 Right tubal pregnancy without intrauterine pregnancy (principal); K66.1 Hemoperitoneum; D62 Acute posthemorrhagic anemia; D63.8 Anemia in other chronic diseases classified elsewhere; E28.2 Polycystic ovarian syndrome; E87.6 Hypokalemia; R79.89 Other specified abnormal findings of blood chemistry; Z98.84 Bariatric surgery status; Z88.5 Allergy status to narcotic agent; Z88.0 Allergy status to penicillin; E66.9 Obesity, unspecified
CPT/HCPCS: 36415; 74177; 76801; 76817; 80048; 80053; 83880; 84702; 84703; 85014; 85018; 85025; 85610; 86850; 86900; 86901; 96374-59; 96375; 96376; 99285-25; A9270; G0378; J1100; J1580; J1885; J2405; J2704; J2765; J2791; J3010; J3480; J7030; J7050; J7120; Q9967